=== PATIENT | female | born 1945 | race Caucasian/White ===

== ENCOUNTER 2022-04-30 15:44 | Emergency (ER) | payer OTHER, SELFPAY ==
[2022-04-30 16:00] VITALS: BP 133/69; PULSE 65; RESP 24; O2SAT 100; BMI 31.1
--- NOTE | 2022-04-30 16:02 | DI.RAD.S_ITS ---
PROCEDURE: XR TIBIA FIBULA LT 2V INDICATIONS: large laceration mid-leg TECHNIQUE: 2 views of the tibia and fibula were acquired. COMPARISON: None. FINDINGS: Bones: No fractures or dislocations. No suspicious bony lesions. Soft tissues: Gas is present within the soft tissue overlying the superior aspect of the fibula in the presumably in the region of the laceration. No unexpected radiopaque foreign bodies. IMPRESSION: Soft tissue laceration without underlying bony abnormality or radiopaque foreign bodies. Dictated by: Sima Han M.D. on 04/30/2022 at 16:43 Approved by: Sima Han M.D. on 04/30/2022 at 16:43
[2022-04-30] MEDS: MORPHINE 2 MG/ML INJ IV ×3 (16:12→17:32)
[2022-04-30] MEDS: ONDANSETRON 4 MG/2 ML INJ IV (16:38)
--- NOTE | 2022-04-30 17:04 | ED.FALL ---
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 Patient was walking on the dock after will watching, slipped and fell. EMS was contacted and brought to the emergency department. Laceration is deep, full thickness. Patient's son, who is a steward/stewardess room, present at bedside to interpret. Related Data Previous Rx's Medication Instructions Recorded cephalexin 500 mg capsule 500 mg PO Q12H laceration repair 7 04/30/22 days #14 caps oxycodone-acetaminophen 5 mg-325 1 tab PO Q6H PRN pain #10 tabs 04/30/22 mg tablet (Percocet) Review of Systems <LINDA Machado - Last Filed: 04/30/22 19:20> Review of Systems Narrative: Narrative: GENERAL: Denies chills, fatigue, fever, sweats. See HPI HEENT: Denies sinus pain, ear pain, sore throat, difficulty swallowing, dizziness. RESPIRATORY: Denies dyspnea, cough, wheezing, sputum. CARDIOVASCULAR: Denies chest pain, palpitations, edema. GASTROINTESTINAL: Denies nausea, vomiting, abdominal pain, diarrhea, constipation. : Denies dysuria, frequency, incontinence, hematuria, urinary retention, flank pain. MSK: Denies weakness, joint pain, or bony pain. SKIN: Endorses deep laceration to left quiros. NEUROLOGIC: Denies weakness, dizziness, headache, numbness, confusion. PSYCHIATRIC: No concerning psychosocial issues. Patient History <LINDA Machado - Last Filed: 04/30/22 19:20> Social History Smoking Status: Never smoker Smoking Status: Never smoker alcohol intake frequency: holidays/special occasions only Substance Use Type: does not use Exam <LINDA Machado - Last Filed: 04/30/22 19:20> Narrative Exam Narrative: Exam Narrative: GENERAL: This is a well-nourished, well-developed patient, in no acute distress HEAD: Atraumatic. Normocephalic. MSK: Moves all extremities. Normal range of motion, no clubbing or edema. Neurovascularly intact. NEURO: A&O x 3. SKIN: 16 cm laceration across the left quiros. Full thickness through the fat layer. Initial Vital Signs Initial Vital Signs: Vital Signs Pulse Rate 65 04/30/22 16:00 Respiratory Rate 24 04/30/22 16:00 Blood Pressure 133/69 04/30/22 16:00 Pulse Oximetry 100 04/30/22 16:00 Oxygen Delivery Method 04/30/22 16:00 Reviewed <Alice Benz DO - Last Filed: 05/01/22 08:06> Initial Vital Signs Initial Vital Signs: Vital Signs Pulse Rate 65 04/30/22 16:00 Respiratory Rate 24 04/30/22 16:00 Blood Pressure 133/69 04/30/22 16:00 Pulse Oximetry 100 04/30/22 16:00 Oxygen Delivery Method 04/30/22 16:00 Procedures <LINDA Machado - Last Filed: 04/30/22 19:20> Laceration Repair Laceration 1: Site: lower extremity Side (If applicable): left Size (cm): 16 Description: irregular Depth: involves muscle layer Local Anesthetic: bupivacaine 0.5% and with epi Amount of anesthesia used (mL): 15 Pre-repair: irrigated extensively and cleansed with chlorhexadine Skin layer closed with: nylon Skin layer suture size: 4-0 Number of sutures: 16 Technique: horizontal mattress Subcutaneous layer closed with: vicryl Subcutaneous layer suture size: 4-0 Number of sutures: 7 Technique: simple, interrupted Course <LINDA Machado - Last Filed: 04/30/22 19:20> Orders Ordered: Discontinued Medications Bupivacaine HCl/Epinephrine Bitart (Bupivacaine 0.5% W/ Epi (Pf) 30 Ml Vial) 5 ml SUBCUT NOW ONE Stop: 04/30/22 16:30 Last Admin: 04/30/22 21:08 Dose: 5 ml Documented By: NR Diphtheria/Tetanus/Acell Pertussis (Tet,Diph,Pertuss(Acell),Vac/Pf 0.5 Ml Syringe) 0.5 ml IM .ONCE ONE Stop: 04/30/22 16:03 Last Admin: 04/30/22 19:08 Dose: 0.5 ml Documented By: NR Cefazolin Sodium 1 gm/ Sodium (Chloride) 100 mls @ 200 mls/hr IV NOW ONE Stop: 04/30/22 18:59 Last Infusion: 04/30/22 19:30 Dose: 0 mls/hr Documented By: Admin: 04/30/22 19:08 Dose: 200 mls/hr Documented By: NR Lidocaine/Epinephrine (Lidocaine 1% W/Epi) 1 ml SUBCUT NOW ONE Stop: 04/30/22 16:03 Last Admin: 04/30/22 16:52 Dose: Not Given Documented By: NR Morphine Sulfate (Morphine 2 Mg/Ml Inj) 2 mg IV NOW ONE Stop: 04/30/22 16:03 Last Admin: 04/30/22 16:12 Dose: 2 mg Documented By: PEDRO Morphine Sulfate (Morphine 2 Mg/Ml Inj) 2 mg IV NOW ONE Stop: 04/30/22 16:33 Last Admin: 04/30/22 16:38 Dose: 2 mg Documented By: PEDRO Morphine Sulfate (Morphine 2 Mg/Ml Inj) 2 mg IV NOW ONE Stop: 04/30/22 17:32 Last Admin: 04/30/22 17:32 Dose: 2 mg Documented By: KINGA Morphine Sulfate (Morphine 2 Mg/Ml Inj) 2 mg IV NOW ONE Stop: 04/30/22 17:34 Last Admin: 04/30/22 21:06 Dose: Not Given Documented By: NR Ondansetron HCl (Ondansetron 4 Mg/2 Ml Inj) 4 mg IV NOW ONE Stop: 04/30/22 16:34 Last Admin: 04/30/22 16:38 Dose: 4 mg Documented By: PEDRO Vital Signs Vital signs: Vital Signs - 8 hr 04/30/22 16:00 Pulse Rate 65 Respiratory Rate 24 Blood Pressure 133/69 Pulse Oximetry 100 Oxygen Delivery Method Room Air <Alice Benz DO - Last Filed: 05/01/22 08:06> Orders Ordered: Discontinued Medications Bupivacaine HCl/Epinephrine Bitart (Bupivacaine 0.5% W/ Epi (Pf) 30 Ml Vial) 5 ml SUBCUT NOW ONE Stop: 04/30/22 16:30 Last Admin: 04/30/22 21:08 Dose: 5 ml Documented By: PEDRO Diphtheria/Tetanus/Acell Pertussis (Tet,Diph,Pertuss(Acell),Vac/Pf 0.5 Ml Syringe) 0.5 ml IM .ONCE ONE Stop: 04/30/22 16:03 Last Admin: 04/30/22 19:08 Dose: 0.5 ml Documented By: NR Cefazolin Sodium 1 gm/ Sodium (Chloride) 100 mls @ 200 mls/hr IV NOW ONE Stop: 04/30/22 18:59 Last Infusion: 04/30/22 19:30 Dose: 0 mls/hr Documented By: Admin: 04/30/22 19:08 Dose: 200 mls/hr Documented By: NR Lidocaine/Epinephrine (Lidocaine 1% W/Epi) 1 ml SUBCUT NOW ONE Stop: 04/30/22 16:03 Last Admin: 04/30/22 16:52 Dose: Not Given Documented By: NR Morphine Sulfate (Morphine 2 Mg/Ml Inj) 2 mg IV NOW ONE Stop: 04/30/22 16:03 Last Admin: 04/30/22 16:12 Dose: 2 mg Documented By: PEDRO Morphine Sulfate (Morphine 2 Mg/Ml Inj) 2 mg IV NOW ONE Stop: 04/30/22 16:33 Last Admin: 04/30/22 16:38 Dose: 2 mg Documented By: PEDRO Morphine Sulfate (Morphine 2 Mg/Ml Inj) 2 mg IV NOW ONE Stop: 04/30/22 17:32 Last Admin: 04/30/22 17:32 Dose: 2 mg Documented By: KINGA Morphine Sulfate (Morphine 2 Mg/Ml Inj) 2 mg IV NOW ONE Stop: 04/30/22 17:34 Last Admin: 04/30/22 21:06 Dose: Not Given Documented By: PEDRO Ondansetron HCl (Ondansetron 4 Mg/2 Ml Inj) 4 mg IV NOW ONE Stop: 04/30/22 16:34 Last Admin: 04/30/22 16:38 Dose: 4 mg Documented By: NR Vital Signs Vital signs: Vital Signs - 8 hr 04/30/22 16:00 Pulse Rate 65 Respiratory Rate 24 Blood Pressure 133/69 Pulse Oximetry 100 Oxygen Delivery Method Room Air MDM - Fall <LINDA Machado - Last Filed: 04/30/22 19:20> Differential Diagnosis Differential diagnosis: Likely other (laceration) Imaging Data Extremity x-ray #1: Radiologist's Impression: [address] [address] XRay Report Signed Patient: Mukul Hirsch MR#: [id number] : 1945 Acct:[id number] Age/Sex: 76 / F Date of Service: 04/30/22 Loc: ED Accession Number: [id number] ?? Procedure: XR tibia fibula LT 2V Ordering Provider: Alice Benz D.O. PROCEDURE:? XR TIBIA FIBULA LT 2V ? INDICATIONS:? large laceration mid-leg ? TECHNIQUE:? 2 views of the tibia and fibula were acquired.? ? COMPARISON:? None. ? FINDINGS:? ? Bones:? No fractures or dislocations.? No suspicious bony lesions.? ? Soft tissues:? Gas is present within the soft tissue overlying the superior aspect of the fibula in the presumably in the region of the laceration.? No unexpected radiopaque foreign bodies. ? IMPRESSION:? Soft tissue laceration without underlying bony abnormality or radiopaque foreign bodies. ? ? Dictated by: Sima Han M.D. on 04/30/2022 at 16:43 ? ? Approved by: Sima Han M.D. on 04/30/2022 at 16:43 ? MDM Narrative Medical decision making narrative: 76-year-old time speaking woman brought into the emergency room via EMS for a deep left quiros laceration secondary to falling on a dock after well watching. Patient received morphine x2 for her pain. Site was anesthetized, irrigated with 1 L of normal saline and closed with internal Vicryl an external nylon sutures (total of 16 external and 7 internal). Patient tolerated procedure well. Tetanus status updated. Patient given 1 g of Ancef IV and will be discharged home with oral antibiotics and pain medications. Discussed plan of care and return precautions with patient son, who agreeable course of action. Discharge Plan Departure Patient Disposition: Home Clinical Impression: Laceration Instructions: DI for Laceration Repair Activity Restrictions/Additional Instructions: *You have been diagnosed with a left leg laceration. Your leg x-ray was normal. We have closed it with 16 external sutures that need to be removed in the next 10-14 days. In addition to IV antibiotics that you received here in the emergency department, we will send you home with oral antibiotics. Additionally, we will give you a limited amount of pain medication for breakthrough pain over the next couple of days. For worsening symptoms that include intolerable pain, increased redness, swelling or yellow discharge of the wound, please return to the emergency department. *What to do: *Please continue to take your regular medications as directed. [ ] New medication prescriptions sent to your pharmacy: [ ] [x ] New medication written as a paper prescription [ ] No new medications given *Please follow up with your primary care provider in 2-3 days, call for an appointment. Let them know you were seen in the Emergency Department and that we ask that you be seen in follow up. We will electronically transmit a record of today's note if your PCP is in our system *If you do not have a primary care provider please contact the [facility] Resource line at [phone]. They will ask some questions about your medical history and help get you set up with a doctor in the community. ? Return to ER if you should have any new, worsening or concerning symptoms, such as worsening pain, severe headache, confusion, chest pain, difficulty breathing, fever greater than 101 F, shaking chills, persistent vomiting to the point that you cannot drink fluids, or other new or worsening symptoms. Prescriptions: New cephalexin 500 mg capsule 500 mg PO Q12H 7 Days Qty: 14 0RF oxycodone-acetaminophen [Percocet] 5-325 mg tablet 1 tab PO Q6H PRN (Reason: pain) Qty: 10 0RF Visit Report Forms: Patient Portal/API <Alice Benz DO - Last Filed: 05/01/22 08:06> [facility]: I saw and evaluated patient myself. She tripped and fell. No head injury or loss of consciousness. She is not on any blood thinners. No pelvic pain. Large laceration on left leg. Assisted with some sutures multiple subcutaneous sutures along with mattress stitches superficially. Overall good closure. It was irrigated she dose of Ancef. I was immediately available in the department for consultation. Documentation has been reviewed. I agree with assessment and plan.
[2022-04-30] MEDS: TET,DIPH,PERTUSS(ACELL),VAC/PF 0.5 ML SYRINGE IM (19:08)
[2022-04-30] MEDS: CEFAZOLIN VIAL 1 GM in SODIUM CHLORIDE 0.9% 100 ML IV (19:08)
[2022-04-30] MEDS: BUPIVACAINE 0.5% W/ EPI (PF) 30 ML VIAL 5 ML SUBCUT (21:08)
[2022-04-30 21:09] VITALS: BP 143/78; PULSE 73; RESP 18; O2SAT 100
== END 2022-04-30 19:39 | disposition home or self-care (01) ==
PROVIDERS: Emergency Provider Registered Nurse
DX: S81.812A Laceration without foreign body, left lower leg, initial encounter (principal); W01.0XXA Fall on same level from slipping, tripping and stumbling without subsequent striking against object, initial encounter; Z23 Encounter for immunization
CPT/HCPCS: 13121; 13122; 36415; 73590; 90471; 96365; 96375; 96376; 99284; 90715; J0690; J2270; J2405